=== PATIENT | female | born 1980 | race American Indian/Alaskan Native ===

== ENCOUNTER 2020-01-07 13:14 | Inpatient (IN) | payer OTHER ==
[2020-01-07 13:56] LABS: Basophils % (Auto) 0.2 % (0.0-1.8); Eosinophils # (Auto) 0.1 K/mm3 (0.0-0.4); Eosinophils % (Auto) 1.1 % (0.0-4.3); Hematocrit 20.7 % (30.3-42.9); Hemoglobin 6.8 gm/dl (10.1-14.3); Lymphocytes # (Auto) 2.7 K/mm3 (1.2-5.4); Lymphocytes % (Auto) 33.3 % (13.4-35.0); Mean Corpuscular HGB Conc 33 % (30-34); Mean Corpuscular Volume 86 fl (79-97); Monocytes # (Auto) 0.4 K/mm3 (0.0-0.8); Monocytes % (Auto) 4.7 % (0.0-7.3); Platelet Count 330 K/mm3 (140-440); Red Blood Count 2.42 M/mm3 (3.65-5.03)
[2020-01-07 14:09] LABS: BUN/Creatinine Ratio 17; Blood Urea Nitrogen 10 mg/dL (7-17); Calcium 8.4 mg/dL (8.4-10.2); Hemolysis Index 2
[2020-01-07] MEDS ORDERED: SODIUM CHLORIDE 0.9% 1000 ML 1,000 ML IV ONE (14:14)
--- NOTE | 2020-01-07 14:26 | Emergency Department Report ---
ED Female HPI - General Chief complaint: Vaginal Bleeding Stated complaint: HEADACHE, DIZZINESS, BLEEDING Time Seen by Provider: 01/07/20 13:48 Source: patient Mode of arrival: Ambulatory Limitations: No Limitations - History of Present Illness Initial comments: This is a 39-year-old G3, P0 female presents the ED complaining of vaginal bleeding since December 08, 2019. Patient states she was seen for the first time Dr. Ross's office today with FUR MATCHER who told her to report to the ED. 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 Patient states that she has been having some dizziness, fatigue and lightheadedness for the past several days. Patient had an pelvic MRI done at [facility] on January 04, 2020. MRI impression shows several Leomyomata and thickening of the endometrium from endometrial hyperplasia. MD Complaint: vaginal bleeding - Related Data Home Medications Medication Instructions Recorded Confirmed Last Taken No Known Home Medications [No 01/07/20 01/07/20 Unknown Reported Home Medications] Allergies Allergy/AdvReac Type Severity Reaction Status Date / Time amoxicillin Allergy Hives Verified 01/07/20 13:16 doxycycline Allergy Hives Verified 01/07/20 13:16 ED Review of Systems ROS: Stated complaint: HEADACHE, DIZZINESS, BLEEDING Other details as noted in HPI Comment: All other systems reviewed and negative ED Past Medical Hx - Past Medical History Previous Medical History?: Yes Additional medical history: uterine fibroids, ovarian cyst - Surgical History Past Surgical History?: No - Social History Smoking Status: Never Smoker Substance Use Type: None - Medications Home Medications: Home Medications Medication Instructions Recorded Confirmed Last Taken Type No Known Home Medications [No 01/07/20 01/07/20 Unknown History Reported Home Medications] ED Physical Exam - General Limitations: No Limitations General appearance: alert, in no apparent distress - Head Head exam: Present: atraumatic, normocephalic - Eye Eye exam: Present: normal appearance - ENT ENT exam: Present: mucous membranes moist - Neck Neck exam: Present: normal inspection - Respiratory Respiratory exam: Present: normal lung sounds bilaterally. Absent: respiratory distress - Cardiovascular Cardiovascular Exam: Present: regular rate, normal rhythm. Absent: systolic murmur, diastolic murmur, rubs, gallop - GI/Abdominal GI/Abdominal exam: Present: soft, normal bowel sounds - Extremities Exam Extremities exam: Present: normal inspection - Back Exam Back exam: Present: normal inspection - Neurological Exam Neurological exam: Present: alert, oriented X3 - Psychiatric Psychiatric exam: Present: normal affect, normal mood - Skin Skin exam: Present: warm, dry, intact, normal color. Absent: rash ED Course Vital Signs 01/07/20 01/07/20 13:20 15:08 Temperature 98.3 F 98.4 F Pulse Rate 78 78 Respiratory 20 20 Rate Blood Pressure 111/78 Blood Pressure 110/72 [Left] O2 Sat by Pulse 100 100 Oximetry - Reevaluation(s) Reevaluation #1: 01/07/20 14:25 Patient is hemodynamically stable at the moment. She is no acute or respiratory distress. Intravenous fluids started. Admission protocol started - Consultations Consultation #1: Dr Chantel Ross Obgyn consulted who agreed for admission to mother-baby for transfusion. 01/07/20 14:24 ED Medical Decision Making - Lab Data Result diagrams: 01/07/20 13:31 01/07/20 13:31 - Medical Decision Making This 39-year-old female presents the ED for vaginal bleeding CBC shows low H&H. Patient to be admitted to mother-baby for blood transfusion. Case was discussed with Dr. Ross FUR MATCHER who sent patient to the ED. Vital signs are normal patient is in no acute distress. Critical care attestation.: If time is entered above; I have spent that time in minutes in the direct care of this critically ill patient, excluding procedure time. ED Disposition Clinical Impression: Vaginal bleeding, Anemia, Low hemoglobin Disposition: DC09 OP ADMIT IP TO THIS HOSP Is pt being admited?: Yes Does the pt Need Aspirin: No Condition: Stable
[2020-01-07 14:30] LABS: Bilirubin,Urine NEG (Negative); Blood,Urine LG (Negative); Color,Urine Red (Yellow); Mucus,Urine 1+ /HPF; Urobilinogen,Urine < 2.0 mg/dL (<2.0)
[2020-01-07 14:36] LABS: RBC,Urine > 182.0 /HPF (0.0-6.0)
[2020-01-07] MEDS ORDERED: SODIUM CHLORIDE 0.9% 500 ML 500 ML IV SCH (17:11)
[2020-01-07] MEDS ORDERED: oxyCODONE /ACETAMINOPHEN 5-325MG TAB PO PRN (17:12)
[2020-01-07] MEDS ORDERED: NALOXONE 0.4 MG/1 ML INJ IV PRN (17:12)
[2020-01-07] MEDS ORDERED: ONDANSETRON 4 MG/2 ML INJ IV PRN (17:12)
[2020-01-07] MEDS ORDERED: ONDANSETRON 4 MG ODT TAB PO PRN (17:12)
[2020-01-07] MEDS ORDERED: IBUPROFEN 600 MG TAB PO PRN (17:15)
--- NOTE | 2020-01-07 17:15 | History and Physical Report ---
History of Present Illness Date of examination: 01/07/20 Date of admission: 01/07/20 14:45 Chief complaint: dizziness, fatigue, vaginal bleeding History of present illness: Pt is a 39 year old -[place] female who presents for the first time to the [facility] today complaining of vaginal bleeding intermittently since May 2019. She was diagnosed with uterine fibroids but has not had any treatment to date. This week she began to experience dizziness while standing in the shower and while trying to get dressed. She reports having to wear diapers this week because pads were not absorbent enough. She recently had a pelvic ultrasound on 11/30/19 which showed a 8.7x5.3x6.2 cm uterus. EMS 2.1 cm. Posterior fibroid 4.3x 3.7x3.1 cm. Probable small cervical nabothian cysts. Right ovary WNL. Left ovary 2.8 cm functional appearing ovarian cyst. No pelvic fluid. On 11/30/19: Hemoglobin and hematocrit were 12.7/40.0.. UA with moderate leuk esterase, 39 WBCs. Pelvic MRI on 01/04/20 revealed Anteverted uterus measuring 12.1x 7.8 x 8.1 cm. Several sharply circumscribed masses consistent with typical leiomyomata. Largest of these is in right corpus 4.0 x 3.4x 3.5 cm. Generalized thickening of the endometrium. 3 cm simple appearing cyst in the right ovary. No pelvic lymphadenopathy. Prior to presenting to the hospital, the patient underwent endometrial biopsy in the office today. 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 ), other (hernia repair ) PYRIDINE RECOVERY OPERATOR History: chlamydia (remote history ), fibroids Family/Genetic History: diabetes, hypertension, cancer Social history: no significant social history - Obstetrical History : 6 Para: 3 Hx # Term Pregnancies: 3 Number of Pregnancies: 0 Spontaneous Abortions: 2 Induced : 1 Number of Living Children: 3 Medications and Allergies Allergies Allergy/AdvReac Type Severity Reaction Status Date / Time amoxicillin Allergy Hives Verified 01/07/20 13:16 doxycycline Allergy Hives Verified 01/07/20 13:16 Home Medications Medication Instructions Recorded Confirmed Last Taken Type No Known Home Medications [No 01/07/20 01/07/20 Unknown History Reported Home Medications] Active Meds: Active Medications Estrogens Conjugated (Premarin) 25 mg IV Q6HR MEERA Stop: 01/08/20 00:01 Sodium Chloride (Nacl 0.9% 500 Ml) 500 mls @ 0 mls/hr IV ONCE MEERA Naloxone HCl (Naloxone) 0.1 mg IV Q2MIN PRN PRN Reason: Res Rate </= 8 or 02 SAT < 92% Ondansetron HCl (Zofran) 4 mg IV Q8H PRN PRN Reason: Nausea And Vomiting Ondansetron HCl (Zofran Odt) 4 mg PO Q8H PRN PRN Reason: Nausea And Vomiting Oxycodone/Acetaminophen (Percocet 5/325) 1 tab PO Q6H PRN PRN Reason: Pain, Moderate (4-6) Review of Systems All systems: negative Constitutional: fatigue, weakness, other (dizziness) Cardiovascular: lightheadedness Gastrointestinal: nausea - Vital Signs Vital signs: Vital Signs Temp Pulse Resp BP Pulse Ox 98.3 F 78 20 111/78 100 01/07/20 13:20 01/07/20 13:20 01/07/20 13:20 01/07/20 13:20 01/07/20 13:20 Temp Pulse Resp BP Pulse Ox 98.4 F 78 20 110/72 100 01/07/20 15:08 01/07/20 15:08 01/07/20 15:08 01/07/20 15:08 01/07/20 15:08 - Physical Exam Breasts: Positive: deferred Abdomen: Positive: soft. Negative: tenderness Uterus: Positive: enlarged Extremities: Positive: normal Results Result Diagrams: 01/07/20 13:31 01/07/20 13:31 Abnormal lab results 01/07/20 01/07/20 01/07/20 Range/Units 13:31 13:31 13:35 RBC 2.42 L (3.65-5.03) M/mm3 Hgb 6.8 L (10.1-14.3) gm/dl Hct 20.7 L (30.3-42.9) % RDW 17.0 H (13.2-15.2) % Creatinine 0.6 L (0.7-1.2) mg/dL Urine WBC (Auto) 167.0 H (0.0-6.0) /HPF Crossmatch 01/07/20 Range/Units 14:49 RBC (3.65-5.03) M/mm3 Hgb (10.1-14.3) gm/dl Hct (30.3-42.9) % RDW (13.2-15.2) % Creatinine (0.7-1.2) mg/dL Urine WBC (Auto) (0.0-6.0) /HPF Crossmatch See Detail All other labs normal. Assessment and Plan A: Acute Blood Loss Anemia- Symptomatic Dysfunctional Uterine Bleeding Fibroid Uterus Morbid Obesity Cystitis P: Admit to gynecology service IV Premarin to decrease bleeding Transfuse 2 units PRBCs Rocepin 1g q 24 hrs. Urine culture pending Closely monitor clinical status
[2020-01-07] MEDS ORDERED: LACTATED RINGERS 1,000 ML IV SCH (18:00)
[2020-01-07] MEDS: ESTROGENS, CONJUGATED 25 MG INJ IV SCH (18:35)
[2020-01-07] MEDS: cefTRIAXone/NS 1 GM/50 ML 1 GM/50 ML BAG IV SCH (18:35)
[2020-01-08] MEDS: ESTROGENS, CONJUGATED 25 MG INJ IV SCH (03:47)
[2020-01-08 09:02] LABS: Hematocrit 22.4 % (30.3-42.9); Hemoglobin 7.2 gm/dl (10.1-14.3)
--- NOTE | 2020-01-08 13:14 | Progress Note ---
Assessment and Plan A: Acute Blood Loss Anemia- Symptomatic Dysfunctional Uterine Bleeding Fibroid Uterus Morbid Obesity Cystitis P: Admit to gynecology service IV Premarin to decrease bleeding Transfuse 2 units PRBCs Rocepin 1g q 24 hrs. Urine culture pending Closely monitor clinical status Subjective - Subjective Date of service: 01/08/20 Principal diagnosis: Menorrhagia, fibroids, severe anemia Patient reports: appetite normal, voiding normally, pain well controlled, flatus, ambulating normally Objective - Vital Signs Latest vital signs: Vital Signs Temp Pulse Resp BP BP Pulse Ox 01/08/20 08:05 97.8 F 85 18 103/57 100 01/08/20 02:00 98.2 F 77 18 94/51 100 01/08/20 01:30 97.7 F 78 16 92/48 99 01/08/20 00:45 86 18 98/51 100 01/08/20 00:15 97.9 F 77 16 97/47 100 01/08/20 00:05 98.0 F 83 18 93/52 01/07/20 23:50 98.1 F 83 18 92/56 100 01/07/20 23:36 97.7 F 81 16 95/53 100 01/07/20 23:25 98 F 87 18 94/54 99 01/07/20 21:11 98.2 F 97 H 20 102/69 100 01/07/20 17:17 89 99/57 100 01/07/20 15:08 98.4 F 78 20 110/72 100 01/07/20 13:20 98.3 F 78 20 111/78 100 Intake and Output 01/07/20 01/08/20 01/08/20 23:59 07:59 15:59 Intake Total 240 0 120 Balance 240 0 120 Intake: Oral 240 120 Blood Product 0 0 Leukoreduced Red Blood 0 0 Cells Unit [id number] Other: Total, Intake Amount 240 120 Voiding Method Toilet # Voids 4 Void 1 Weight 102.92 kg - Exam Breasts: Present: normal Cardiovascular: Present: Regular rate, Normal S1 Lungs: Present: Clear to auscultation, Normal air movement Abdomen: Present: normal appearance, soft, normal bowel sounds. Absent: distention, tenderness, guarding Uterus: Present: normal Extremities: Present: normal Deep Tendon Reflex Grade: Normal +2 - Labs Labs: Abnormal lab results 01/07/20 01/07/20 01/07/20 Range/Units 13:31 13:31 13:35 RBC 2.42 L (3.65-5.03) M/mm3 Hgb 6.8 L (10.1-14.3) gm/dl Hct 20.7 L (30.3-42.9) % RDW 17.0 H (13.2-15.2) % Creatinine 0.6 L (0.7-1.2) mg/dL Urine WBC (Auto) 167.0 H (0.0-6.0) /HPF Crossmatch 01/07/20 01/08/20 Range/Units 14:49 08:51 RBC (3.65-5.03) M/mm3 Hgb 7.2 L (10.1-14.3) gm/dl Hct 22.4 L (30.3-42.9) % RDW (13.2-15.2) % Creatinine (0.7-1.2) mg/dL Urine WBC (Auto) (0.0-6.0) /HPF Crossmatch See Detail
[2020-01-08] MEDS ORDERED: SODIUM CHLORIDE 0.9% 500 ML 500 ML IV SCH (14:00)
[2020-01-08] MEDS: cefTRIAXone/NS 1 GM/50 ML 1 GM/50 ML BAG IV SCH (19:21)
[2020-01-08 23:48] LABS: Hematocrit 23.9 % (30.3-42.9)
--- NOTE | 2020-01-09 07:46 | Progress Note ---
Assessment and Plan A: Acute Blood Loss Anemia- Dysfunctional Uterine Bleeding Fibroid Uterus Morbid Obesity Cystitis P: Admit to gynecology service IV Premarin to decrease bleeding s/p Transfusion 2 units PRBCs-- hgb 8 Rocepin 1g q 24 hrs. Urine culture pending Consider d/c home with f/u next week Subjective - Subjective Date of service: 01/09/20 Principal diagnosis: Menorrhagia, fibroids, severe anemia Patient reports: appetite normal, voiding normally, pain well controlled, flatus, ambulating normally Objective - Vital Signs Latest vital signs: Vital Signs Temp Pulse Resp BP BP Pulse Ox 01/09/20 04:00 98.6 F 88 18 100/66 01/09/20 00:00 98.6 F 78 16 100/50 01/08/20 19:30 98.6 F 80 18 99/65 01/08/20 17:00 98.6 F 83 18 100/57 01/08/20 16:30 98.6 F 83 18 98/55 97 01/08/20 16:00 98.4 F 86 18 106/74 01/08/20 15:30 83 101/61 01/08/20 15:00 89 20 110/58 96 01/08/20 14:30 98.6 F 92 H 18 112/67 98 01/08/20 14:15 98.6 F 92 H 18 99/58 01/08/20 12:40 98.3 F 95 H 18 100/48 100 01/08/20 08:05 97.8 F 85 18 103/57 100 Intake and Output 01/08/20 01/08/20 01/09/20 15:59 23:59 07:59 Intake Total 360 550 Balance 360 550 Intake: Oral 360 Intake, Free Water 300 Blood Product 0 250 Leukoreduced Red Blood 0 250 Cells Unit [id number] Other: Total, Intake Amount 240 Voiding Method Toilet # Voids Void 1 - Exam Breasts: Present: normal Cardiovascular: Present: Regular rate, Normal S1 Lungs: Present: Clear to auscultation, Normal air movement Abdomen: Present: normal appearance, soft, normal bowel sounds. Absent: distention, tenderness, guarding Uterus: Present: normal, firm. Absent: bogginess, tenderness Deep Tendon Reflex Grade: Normal +2 - Labs Labs: Abnormal lab results 01/07/20 01/08/20 01/08/20 Range/Units 14:49 08:51 22:28 Hgb 7.2 L 8.0 L (10.1-14.3) gm/dl Hct 22.4 L 23.9 L (30.3-42.9) % Crossmatch See Detail
--- NOTE | 2020-01-09 07:49 | Discharge Summary ---
Providers - Providers Date of Admission: 01/08/20 12:51 Date of discharge: 01/09/20 Attending physician: LINETTE ROSS Primary care physician: Dr. Ross Hospitalization Reason for admission: other (severe anemia and menorrhagia ) Hospital course: Patient admitted after noting menorrhagia and severe anemia. She reecived 2 U blood transfusion and premarin. She did well hgb went from 6 to 8 and bleeding scant. Discharge with f/u next week Condition at discharge: Good Disposition: DC-01 TO HOME OR SELFCARE Plan - Provider Discharge Summary Additional instructions: [] Smoking cessation referral if applicable(refer to patient education folder for contact #) [] Refer to [facility] Booklet Call your doctor immediately for: * Fever > 100.5 * Heavy vaginal bleeding ( >1 pad per hour) * Severe persistent headache * Shortness of breath * Reddened, hot, painful area to leg or breast * Drainage or odor from incision. * Keep incision clean and dry at all times and follow doctor's instructions regarding bathing/showering - Follow up plan Follow up: [facility]OSCANO [Other] - 7 Days
[2020-01-09 09:42] VITALS: BP 116/67
== END 2020-01-09 10:35 | disposition home or self-care (01) | DRG 760 ==
LOC: ED 13:14 → OB 14:45 → OBSVTOIN 01-08 12:51
PROVIDERS: ADMIT Obstetrics & Gynecology; ATTEND Obstetrics & Gynecology
DX: N92.0 Excessive and frequent menstruation with regular cycle (principal); Z68.41 Body mass index [BMI] 40.0-44.9, adult; D62 Acute posthemorrhagic anemia; N93.9 Abnormal uterine and vaginal bleeding, unspecified; E66.01 Morbid (severe) obesity due to excess calories; N30.90 Cystitis, unspecified without hematuria; D25.9 Leiomyoma of uterus, unspecified; N80.9 Endometriosis, unspecified; Z83.3 Family history of diabetes mellitus; Z82.49 Family history of ischemic heart disease and other diseases of the circulatory system; Z85.9 Personal history of malignant neoplasm, unspecified; Z88.1 Allergy status to other antibiotic agents
CPT/HCPCS: 36415; 36430; 80048; 81001; 84702; 85014; 85018; 85025; 86850; 86900; 86901; 86920; 87076; 87086; 87186; G0378; J0696; J1410; J2405; J7030; J7040; J7120; P9016